=== PATIENT | male | born 1965 | race Caucasian/White ===

== ENCOUNTER 2019-11-17 18:33 | Emergency (ER) | payer OTHER ==
[~2019-11-17 18:33] MED LIST: Sterile Water Irrigation 1,000 ML BOT ONE
[2019-11-17] MEDS ORDERED: Mupirocin 2% Ointment 22 GM Tube ONE ×2 (19:00→19:18)
[2019-11-17] MEDS ORDERED: Sodium Chloride 0.9% 1,000 ML ONE (19:00)
[2019-11-17] MEDS ORDERED: Triple Antibiotic Oint 1 GM Packet ONE (19:00)
[2019-11-17 19:06] LABS: #Basophils 0.1 thou/uL (0.0-0.2); #Eosinphils 0.4 thou/uL (0.0-0.7); #Lymphocytes 4.5 thou/uL (1.20-3.40); #Monocytes 0.6 thou/uL (0.11-0.59); #Neutrophils 4.5 thou/uL (1.40-6.50); %Basophils 0.8 % (0.0-1.0); %Eosinophils 3.8 % (0.0-10.0); %Lymphocytes 44.7 % (21.0-51.0); %Neutrophils 44.8 % (42.0-75.0); Hemoglobin 14.9 g/dL (14.0-18.0); Mean Corpuscular Hemoglobin 29.3 pg (27.0-31.0); Mean Corpuscular Volume 91.8 fL (78.0-98.0); Mean Platelet Volume 7.8 fL (7.4-10.4); Platelet Count 324 thou/uL (130-400); RBC Distribution Width 11.3 % (11.5-14.5); Red Blood Cell (RBC) Count 5.09 mill/uL (4.70-6.10); White Blood Cell (WBC) Count 10.1 thou/uL (4.8-10.8)
[2019-11-17] MEDS ORDERED: Adacel (T-DAP) 0.5 ML SYRINGE ONE (19:09)
[2019-11-17 19:21] LABS: Anion Gap 16 mmol/L (10-20); BUN (Urea Nitrogen) 19 mg/dL (8.4-25.7); Calc. Creatinine Clearance 0 mL/min (70-130); Calcium 9.1 mg/dL (7.8-10.44); Carbon Dioxide 23 mmol/L (22-29); Chloride 104 mmol/L (98-107); Estimated GFR-MDRD 46; Glucose 92 mg/dL (70-105); Potassium 3.5 mmol/L (3.5-5.1); Sodium 139 mmol/L (136-145)
[2019-11-17] MEDS ORDERED: Lidocaine 1% 20 ML MDV ONE (19:30)
== END 2019-11-17 20:54 | disposition short-term general hospital (02) ==
LOC: MADERS 18:33
DX: T20.36XA Burn of third degree of forehead and cheek, initial encounter (principal); T22.212A Burn of second degree of left forearm, initial encounter; T20.24XA Burn of second degree of nose (septum), initial encounter; T20.212A Burn of second degree of left ear [any part, except ear drum], initial encounter; T20.26XA Burn of second degree of forehead and cheek, initial encounter; T20.27XA Burn of second degree of neck, initial encounter; T31.0 Burns involving less than 10% of body surface; F41.9 Anxiety disorder, unspecified; F17.210 Nicotine dependence, cigarettes, uncomplicated; E78.00 Pure hypercholesterolemia, unspecified; E78.5 Hyperlipidemia, unspecified; S31.113A Laceration without foreign body of abdominal wall, right lower quadrant without penetration into peritoneal cavity, initial encounter; X76.XXXA Intentional self-harm by smoke, fire and flames, initial encounter
CPT/HCPCS: 12002; 80048; 85025; 90471; 90715; 96360; 96361; A4217; J2001; J7050